=== PATIENT | female | born 1960 | race African-American/Black ===

== ENCOUNTER 2018-04-08 16:31 | Emergency (ER) | payer MEDICAID ==
[~2018-04-08] VITALS: Ht 175.3 cm; Wt 70.0 kg
[2018-04-08 16:44] VITALS: BP 149/86
== END 2018-04-09 | disposition left against medical advice (07) ==
LOC: ER 22:58
DX: R06.02 Shortness of breath (principal); Z53.21 Procedure and treatment not carried out due to patient leaving prior to being seen by health care provider